=== PATIENT | male | born 1950 | race Caucasian/White ===

== ENCOUNTER 2017-04-28 01:05 | Emergency (ER) | payer BC, OTHER ==
[2017-04-28] MEDS ORDERED: Ketorolac Tromethamine 30 MG/ML VIAL ONE (01:28)
[2017-04-28 01:50] LABS: Bilirubin Negative (Negative); Blood, Urine Large (Negative); Glucose, Urine (Dipstick) 500 mg/dL (Negative); Ketone, Urine Trace mg/dL (Negative); Nitrite Negative (Negative); Protein, Urine (Dipstick) 100 mg/dL (Neg-Trace); Urobilinogen 0.2 mg/dL (0.2-1.0)
[2017-04-28 01:51] LABS: #Basophils 0.1 thou/uL (0.0-0.2); #Eosinphils 0.3 thou/uL (0.0-0.7); #Lymphocytes 2.3 thou/uL (1.20-3.40); #Monocytes 0.9 thou/uL (0.11-0.59); #Neutrophils 8.2 thou/uL (1.40-6.50); %Basophils 1.1 % (0.0-1.0); %Eosinophils 2.2 % (0.0-10.0); %Lymphocytes 19.8 % (21.0-51.0); %Monocytes 7.3 % (0.0-10.0); Hematocrit 49.6 % (42.0-52.0); Mean Platelet Volume 8.5 fL (7.4-10.4); Red Blood Cell (RBC) Count 5.62 mill/uL (4.70-6.10); White Blood Cell (WBC) Count 11.8 thou/uL (4.8-10.8)
[2017-04-28 01:52] LABS: Bacteria/HPF None Seen HPF (None Seen); Hyaline Casts/LPF 4-6 HYALINE CAST LPF (0-3 Hyaline); RBC/HPF GREATER THAN 50-TNTC HPF (0-3); Squamous Epithelial 0-3 HPF (0-3)
[2017-04-28 02:10] LABS: ALT (SGPT) 10 U/L (8-55); AST (SGOT) 17 U/L (5-34); Alkaline Phosphatase 72 U/L (40-150); Anion Gap 13 mmol/L (10-20); BUN (Urea Nitrogen) 20 mg/dL (8.4-25.7); Bilirubin, Total 0.5 mg/dL (0.2-1.2); Calc. Creatinine Clearance 0 mL/min (70-130); Calcium 10.2 mg/dL (7.8-10.44); Carbon Dioxide 28 mmol/L (23-31); Chloride 101 mmol/L (98-107); Estimated GFR-MDRD 68; Protein, Total 7.5 g/dL (5.8-8.1)
--- NOTE | 2017-04-28 07:42 | CT ---
PRELIMINARY REPORT/[facility]/EMERGENCY AFTER HOURS PROCEDURE: EXAM: CT Abdomen and Pelvis Without Intravenous Contrast CLINICAL HISTORY: 66 years old, male; Pain; Abdominal pain; Generalized; Patient HX: R/O stone TECHNIQUE: Axial computed tomography images of the abdomen and pelvis without intravenous contrast. Coronal reformatted images were created and reviewed. COMPARISON: No relevant prior studies available. FINDINGS: Lower thorax: No acute findings.A small hiatal hernia is detected. ABDOMEN: Liver: Unremarkable. Gallbladder and bile ducts: Unremarkable. No calcified stones. No ductal dilation. Pancreas: Unremarkable. No ductal dilation. Spleen: Unremarkable. No splenomegaly. Adrenals: Unremarkable. No mass. Kidneys and ureters: Left UPJ calculus measuring 11 x 7 mm and mild left hydronephrosis. 6 mm right r enal calculus. Stomach and bowel: Unremarkable. No obstruction. No mucosal thickening. Appendix: No findings to suggest acute appendicitis. PELVIS: Bladder: Unremarkable. No stones. Reproductive: Unremarkable as visualized. ABDOMEN and PELVIS: Intraperitoneal space: Unremarkable. No free air. No significant fluid collection. Bones/joints: No acute fracture. No dislocation. Soft tissues: Unremarkable. Vasculature: Unremarkable. No abdominal aortic aneurysm. Lymph nodes: Unremarkable. No enlarged lymph nodes. IMPRESSION: Mild left hydronephrosis secondary to an 11 x 7 mm left UPJ calculus Nonobstructing 6 mm a right renal calculus Thank you for allowing us to participate in the care of your patient. Dictated and Authenticated by: Yogesh Orr MD 04/28/2017 2:40 AM Central Time ([place] & [place]) FINAL REPORT CT ABDOMEN AND PELVIS WITHOUT IV CONTRAST: FINDINGS: There is an approximately 10 mm calculus in the proximal left ureter producing moderate left hydronep hrosis. I am in agreement with the preliminary report. Code QA POS: [facility]
== END 2017-04-28 03:02 | disposition home or self-care (01) ==
LOC: ERS 01:05
DX: N13.2 Hydronephrosis with renal and ureteral calculous obstruction (principal); E78.00 Pure hypercholesterolemia, unspecified; I10 Essential (primary) hypertension; E11.9 Type 2 diabetes mellitus without complications; Z79.84 Long term (current) use of oral hypoglycemic drugs; Z79.899 Other long term (current) drug therapy; Z87.891 Personal history of nicotine dependence
CPT/HCPCS: 74176; 80053; 81003; 81015; 85025; 96361; 96374; J1885

== ENCOUNTER 2019-03-26 09:50 | Outpatient (CLI) | payer BC ==
[2019-03-26 10:51] LABS: Hemoglobin 13.8 g/dL (14.0-18.0); Mean Corpuscular Hemoglobin 28.5 pg (27.0-31.0); Mean Corpuscular Volume 83.9 fL (78.0-98.0); Mean Platelet Volume 9.3 fL (7.4-10.4); Platelet Count 164 thou/uL (130-400); RBC Distribution Width 12.2 % (11.5-14.5); Red Blood Cell (RBC) Count 4.85 mill/uL (4.70-6.10)
[2019-03-26 11:09] LABS: Anion Gap 13 mmol/L (10-20); BUN (Urea Nitrogen) 26 mg/dL (8.4-25.7); Calc. Creatinine Clearance 0 mL/min (70-130); Calcium 9.1 mg/dL (7.8-10.44); Carbon Dioxide 24 mmol/L (23-31); Chloride 103 mmol/L (98-107); Estimated GFR-MDRD 33; Glucose 134 mg/dL (80-115); Potassium 4.2 mmol/L (3.5-5.1); Sodium 136 mmol/L (136-145)
--- NOTE | 2019-03-28 18:45 | EKG ---
Test Reason : Blood Pressure : / mmHG Vent. Rate : 085 BPM Atrial Rate : 085 BPM P-R Int : 142 ms QRS Dur : 088 ms QT Int : 390 ms P-R-T Axes : 054 -42 022 degrees QTc Int : 464 ms Sinus rhythm with occasional Premature ventricular complexes Left axis deviation Cannot rule out Anterior infarct , age undetermined Abnormal ECG No previous ECGs available Confirmed by DR. Clint LIZARRAGA ([id number]) on 03/28/2019 6:45:27 PM Referred By: THANH Confirmed By:DR. Clint LIZARRAGA
== END 2019-03-26 09:51 | disposition home or self-care (01) ==
LOC: LABBT 09:50
PROVIDERS: ATTEND Urology
DX: Z01.818 Encounter for other preprocedural examination (principal); N20.0 Calculus of kidney
CPT/HCPCS: 80048; 85027; 93005; 93010

== ENCOUNTER 2019-03-27 08:14 | Day surgery (SDC) | payer BC ==
[2019-03-26 09:55] VITALS: BMI 23.5
[2019-03-27] MEDS ORDERED: Levofloxacin 500 mg/D5W 100 ml Premix Bag ONE (09:20)
[2019-03-27] MEDS ORDERED: ePHEDrine/0.9% NaCl/PF SYRINGE 50 mg/10 ml ONE (10:45)
[2019-03-27] MEDS ORDERED: Lidocaine 1% PF 5 ML VIAL ONE (10:45)
[2019-03-27] MEDS ORDERED: PROPOFOL 200 MG/20 ML VIAL ONE (10:45)
[2019-03-27] MEDS ORDERED: Fentanyl 100 MCG/2 ML VIAL ONE (11:06)
[2019-03-27] MEDS ORDERED: Iothalamate Meglumine 60% 50 ML VIAL FS ONE (11:17)
--- NOTE | 2019-03-27 12:05 | RAD ---
Retrograde pyelogram: 03/27/2019 HISTORY: Right ureteroscopy, stent placement FINDINGS: A single image is provided. There is a stent within the right ureter. The proximal curl is not well evaluated and may not be formed. The distal curl appears normal. There is contrast media within the intrarenal collecting system with incomplete distention limiting assessment. IMPRESSION: Retrograde pyelogram as above.
--- NOTE | 2019-03-27 12:32 | OP ---
DATE OF PROCEDURE: 03/27/2019 PREOPERATIVE DIAGNOSIS: Right renal stone. POSTOPERATIVE DIAGNOSIS: Right renal stone. PROCEDURES PERFORMED: Right ureteroscopy, laser lithotripsy, basket extraction of stone, and 4.8 x 26 double-J ureteral stent placement. ANESTHESIA: General. COMPLICATIONS: None. BLOOD LOSS: Minimal. SPECIMEN: Right renal stone fragments. DESCRIPTION OF PROCEDURE: After informed consent, the patient was taken to the operating room, transferred to the table under his own power. Anesthesia was established. A time-out was performed showing the correct patient, site, and procedure. Preoperative antibiotics were administered. He was prepped and draped in the lithotomy position. The rigid cystoscope was advanced through the urethra noting a normal course and caliber of the urethra into the bladder. The bladder was systematically examined noting no mucosal abnormalities. The right ureter was cannulated with a wire, which was negotiated up to the level of the renal pelvis under fluoroscopic guidance. An access sheath was placed over the wire into the mid ureter, where a retrograde pyelogram was performed showing good filling of the ureter without filling defect and only very minimal hydronephrosis. The wire was then replaced and the access sheath passed into the proximal ureter. The flexible ureteroscope was initiated through the access sheath into the renal pelvis, where the stone was encountered in a mid pole calyx. The 200 micron laser fiber was utilized to trim the stone into very small pieces. There were several clinically significant stone fragments remaining, which were removed with the Nitinol basket. The renal pelvis was then reexamined noting no clinically significant stone fragments. The renal pelvis was filled with contrast and then the scope and access sheath withdrawn leaving the wire in place. A 4.8 x 26 double-J ureteral stent was placed over the wire with a curl in the kidney and curl in the bladder under fluoroscopic guidance. A completion film was taken. The patient was then awoken from anesthesia, transferred back to his hospital bed and taken to PACU in stable condition, where he will be discharged home upon recovery. Job ID: [id number]
[2019-03-27] MEDS ORDERED: Oxybutynin 5 MG TAB ONE (12:45)
[2019-03-27] MEDS ORDERED: Phenazopyridine HCl 97.5 MG TABLET ONE (12:46)
== END 2019-03-27 13:40 | disposition home or self-care (01) ==
LOC: SDC 08:14
PROVIDERS: ATTEND Urology
PROC: 0TF38ZZ Fragmentation in Right Kidney Pelvis, Via Natural or Artificial Opening Endoscopic (ICD-10-PCS; principal; 2019-03-27)
PROC: 0T768DZ Dilation of Right Ureter with Intraluminal Device, Via Natural or Artificial Opening Endoscopic (ICD-10-PCS; principal; 2019-03-27)
DX: N13.2 Hydronephrosis with renal and ureteral calculous obstruction (principal); Z79.84 Long term (current) use of oral hypoglycemic drugs; Z79.899 Other long term (current) drug therapy
CPT/HCPCS: 74420; 82365; 88300; J1956; J2001; J2704; J3010